=== PATIENT | male | born 1980 ===

== ENCOUNTER 2021-10-31 11:22 | Emergency (ER) | payer BC ==
[~2021-10-31] VITALS: Ht 167.6 cm; Wt 92.3 kg
[2021-10-31 11:47] VITALS: TEMP 98.3
[2021-10-31 13:27] VITALS: BP 120/74; PULSE 85
== END 2021-10-31 13:32 | disposition home or self-care (01) ==
LOC: COL.ER 11:22
DX: U07.1 COVID-19 (principal); F17.210 Nicotine dependence, cigarettes, uncomplicated